=== PATIENT | male | born 2000 | race Caucasian/White ===

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

== ENCOUNTER 2022-01-12 03:22 | Emergency (ER) | payer OTHER ==
[~2022-01-12] VITALS: Ht 188 cm; Wt 86.2 kg
[~2022-01-12 03:22] MED LIST changes: +CEPH500 PO; +KETO10 PO
== END 2022-01-12 04:53 | disposition home or self-care (01) ==
LOC: ER 03:22
DX: T65.91XA Toxic effect of unspecified substance, accidental (unintentional), initial encounter (principal); H10.211 Acute toxic conjunctivitis, right eye
CPT/HCPCS: 99283